=== PATIENT | female | born 1980 | race African-American/Black ===

== ENCOUNTER → 2017-02-18 | Day surgery (SDC) | payer OTHER ==
--- NOTE | 2017-02-17 22:17 | HHI.HP ---
HPI Chief Complaint menometrorrhagia, multiple fibroids, anemia due to blood loss, pelvic pain Date Seen: February 18, 2017 Travel History International Travel<30 Days: No Contact w/Intl Traveler<30Days: No Known Affected Area: No History of Present Illness HPI Patient is a 36 years old female with a long history of heavy menstrual flow for many days and abnormal bleeding. She has developed anemia due to her blood loss. The patient has requested surgical treatment in the form of an endometrial ablation. Para: 2 : 2 Miscarriage: 0 : 0 History Past Medical History Medical History: Denies Significant Hx Obstetric History Obstetric History Two pregnancies, two vaginal deliveries Past Surgical History Narrative Surgical 2005 -- Bilateral tubal ligation Family History Family History: Negative Social History Alcohol Use: No Tobacco Use: No Substance Abuse: No Allergies-Medications (Allergen,Severity, Reaction): Coded Allergies: No Known Allergies (Unverified , 02/17/17) Narrative Medication Ferrous Sulfate Review of Systems General / Constitutional: No: Fever, Weight Gain, Chills, Other Eyes: No: Diploplia, Blurred Vision, Visual changes, Pain, Photophobia HENT: No: Headaches, Vertigo, Lightheadedness Cardiovascular: No: Irregular Rhythm, Chest Pain or Discomfort, Palpitations, Tachycardia, Syncope, Varicosities, Edema, Cyanosis Respiratory: No: Cough, Short of Breath, Other Gastrointestinal: No: Nausea, Vomiting, Diarrhea Genitourinary: Pelvic Pain, Menorrhagia, Vaginal Bleeding, No: Decreased Urinary Output, Oliguria Musculoskeletal: No: Limited ROM, Weakness, Cramping, Edema, Pain Skin: No Rash, No Itching, No Dryness, No Lumps, No Change in Pigmentation, No Change in Nails, No Alopecia, No Lesions Neurologic: No: Weakness, Dizziness, Syncope, Focal Abnormalities, Coordination Problem, Headache, Slurred Speech, Seizures Psychiatric: No: Depression, Suicidal Ideations, Homicidal Ideation Endocrine: No: Heat Intolerance, Cold Intolerance, Polydipsia, Polyuria, Other Physical Exam Narrative GENERAL: Well-nourished, well-developed patient. SKIN: Warm and dry. HEAD: Normocephalic and atraumatic. EYES: No scleral icterus. No injection or drainage. ENT: No nasal drainage noted. Mucous membranes pink. Airway patent. NECK: Supple, trachea midline. No JVD. CARDIOVASCULAR: Regular rate and rhythm without murmurs, gallops, or rubs. RESPIRATORY: Breath sounds equal bilaterally. No accessory muscle use. BREASTS: Bilateral exam showed no masses , no retractions, no nipple discharge. ABDOMEN/GI: Abdomen soft, non-tender, bowel sounds present, no rebound, no guarding GENITOURINARY: External Genitalia: intact and normal in appearance Uterus: enlarged fibroids uterus EXTREMITIES: No cyanosis or edema. BACK: Nontender without obvious deformity. No CVA tenderness. NEUROLOGICAL: Awake and alert. Motor and sensory grossly within normal limits. Five out of 5 muscle strength in all muscle groups. Normal speech. Data Data Vital Signs Reviewed: Yes Assessment/Plan Problem List: (1) Excessive and frequent menstruation with irregular cycle (2) Iron deficiency anemia due to chronic blood loss (3) Intramural leiomyoma of uterus (4) Subserosal leiomyoma of uterus Assessment and Plan 1. admit for hysteroscopy, D&C, endometrial ablation 2. discussed the R/B/A of the procedure: bleeding, infection, damage to internal organs if uterine perforation occurs (bowel, bladder, nerves, ureters, vessels) as well damage to vaginal coyle 3, discussed the risk of needing further treatment and / or surgical treatment 4. informed consent was obtained after patient's questions were answered; she verbalized understanding Letitia Bean MD February 17, 2017 22:17
[~2017-02-18] MED LIST: KETOROLAC TROMETHAMINE 30 MG/ML (IVP) VIAL IV PUSH ONE; LACTATED RINGER'S 1000 ML INJ 1,000 ML ONE; MEPERIDINE HCL 25 MG/ML VIAL ONE; MIDAZOLAM HCL 2 MG/2 ML VIAL ONE; ONDANSETRON HCL 4 MG/2 ML VIAL IV PUSH ONE; PROPOFOL 200 MG/20 ML AMP IV ONE; ceFAZolin INJ 1,000 MG VIAL ONE; oxyCODONE/ACETAMINOPHEN 5 MG/325 MG TAB ONE
--- NOTE | 2017-02-18 20:09 | PD.OP ---
Operative Report Date of Surgery: February 18, 2017 Preoperative Diagnosis: (1) Excessive and frequent menstruation with irregular cycle (2) Iron deficiency anemia due to chronic blood loss (3) Intramural leiomyoma of uterus (4) Subserosal leiomyoma of uterus Postoperative Diagnosis: (1) Excessive and frequent menstruation with irregular cycle (2) Iron deficiency anemia due to chronic blood loss (3) Intramural leiomyoma of uterus (4) Subserosal leiomyoma of uterus Procedure: 1. hysteroscopy 2. Polypectomy 3. D&C 4. endometrial ablation with NovaSure Anesthesia: General Surgeon: Letitia Bean Drafter Topographical(s): Staff Operation and Findings: IVF: 600 ml LR + IV antibiotics given prior to surgery UO: none EBL: < 10 ml Findings: endometrial polyp vs myoma Specimens: endometrial curettings Complications: none Conditions: stable Disposition: PACU Description of procedure: I discussed the risks, benefits and alternatives of the procedure with the patient. Her questions were answered, informed consent was signed, the patient verbalized understanding. She was then taken to the operating room with her IV running, was placed in the supine position and was given general anesthesia without difficulties or complications.The patient was then placed in the dorsal lithotomy position and was prepped and draped in the usual sterile fashion. A bivalved speculum was introduced inside the patient's vagina. The anterior aspect of the cervix was grasped with a single tooth tenaculum for manipulation. The cervix was carefully dilated. The Myosure camera was then introduced inside the patient's uterus. The uterine cavity was noted to have large endometrial polyp (and suspected myoma). The Myosure instrument was used to remove the polyps and the endometrial lining. A gentle curettage was done with a sharp curette. The tissues were sent to pathology. Next, endometrial ablation following NovaSure protocol was done without difficulties (L=6, W= 4.6, P=156). All the instruments were removed from the patient's uterus. Good hemostasis was noted at the tenaculum site after two figure eight Chromic stitches were placed. All instruments were removed from the patient's vagina. The patient tolerated the procedure well. She was successfully awaken from general anesthesia and was transferred to PACU in stable condition Note: I discussed the surgical findings and procedures with the patient; her questions were answered; she verbalized understanding and agreement to the procedures done. Letitia Bean MD February 18, 2017 20:09
== END | disposition home or self-care (01) ==
LOC: ESDC 09:17
PROVIDERS: ATTEND Obstetrics & Gynecology
DX: N92.0 Excessive and frequent menstruation with regular cycle (principal); D50.0 Iron deficiency anemia secondary to blood loss (chronic); D25.1 Intramural leiomyoma of uterus; D25.2 Subserosal leiomyoma of uterus
CPT/HCPCS: 00952; 58563; 88305; J0690; J1885; J2175; J2250; J2405; J3010; J7120

== ENCOUNTER → 2017-06-16 | Day surgery (SDC) | payer OTHER ==
[~2017-06-16] VITALS: Ht 175.3 cm; Wt 120.3 kg
[~2017-06-16] MED LIST changes: +*MEPERIDINE 25 MG INJ VIAL PERIprocedural Use ONLY ONE; +*morphine SULFATE 8 MG/ML PERIprocedure ONLY ONE; +ACETAMINOPHEN 1000 MG/100 ML 100 ML IV ONE; +ACYC800T PO; +BUPIVACAINE HCL PF 0.25% 30 ML VIAL ONE; +BUPIVACAINE/EPINEPHRINE 0.5% 50 ML VIAL ONE; +BUPIVACAINE/EPINEPHRINE 0.5% PF 10 ML VIAL ONE; +CETI10CA3 PO; +CHLORHEXIDINE GLUCONATE 2 % 1 PACK (2 CLOTHS) TOPICAL PRN; +DEXAMETHASONE SOD PHOS 4 MG/ML VIAL IV ONE; +DO NOT ADM ANY ANTICOAGULANT DRUGS PRN; +ESTROGENS CONJUGATED VAG CREA 15 APPL/30 GM TUBE ONE; +FAMOTIDINE 20 MG/2 ML VIAL ONE; +FERR325T8 PO; +GLYCOPYRROLATE 0.2 MG/ML VIAL IV ONE; +INSULIN HUMAN REGULAR 1,000 UNITS/10 ML VIAL SQ PRN; -KETOROLAC TROMETHAMINE 30 MG/ML (IVP) VIAL IV PUSH ONE; -LACTATED RINGER'S 1000 ML INJ 1,000 ML ONE; +LACTATED RINGER'S 1000 ML IV PRN; +LIDOCAINE HCL 1% PF 5 ML AMPULE OTHER ONE; -MEPERIDINE HCL 25 MG/ML VIAL ONE; +METHYLENE BLUE 10 MG/ML VIAL IV ONE; +METOPROLOL TARTRATE 25 MG TAB PO PRN; +MIDAZOLAM HCL 2 MG/2 ML VIAL IV ONE; -MIDAZOLAM HCL 2 MG/2 ML VIAL ONE; +NEOSTIGMINE 3 MG/3 ML SYR IV ONE; +PHENYLEPH/NS 1000 MCG/10 ML SYR IV ONE; +POVIDONE IODINE 5% (ANTISEPSIS KIT) 4 APPLICATIONS EACH NARE PRN; +ROCURONIUM INJ 50 MG/5 ML SYRINGE IV PUSH ONE; +SODIUM CHLORID 0.9% 500 ML IV PRN; +SODIUM CHLORIDE 0.9% 20 ML VIAL ONE; +SODIUM CHLORIDE 0.9% IV ONE; +VASOPRESSIN 20 UNITS/ML VIAL (IVTITR) ONE; +VITA1000 PO; +[UNRECOGNIZED DRUG - OTHER] IV ONE; +ceFAZolin 2 GM PREMIX 50 ML IV SCH; -ceFAZolin INJ 1,000 MG VIAL ONE; -oxyCODONE/ACETAMINOPHEN 5 MG/325 MG TAB ONE; +oxyCODONE/ACETAMINOPHEN 5 MG/325 MG TAB PO PRN
--- NOTE | 2017-06-16 11:09 | PD.OP ---
Operative Report Date of Surgery: Jun 16, 2017 Preoperative Diagnosis: (1) Uterine prolapse (2) Excessive and frequent menstruation with irregular cycle (3) Iron deficiency anemia due to chronic blood loss (4) Intramural leiomyoma of uterus Postoperative Diagnosis: (1) Uterine prolapse (2) Excessive and frequent menstruation with irregular cycle (3) Iron deficiency anemia due to chronic blood loss (4) Intramural leiomyoma of uterus Procedure: 1. laparoscopic assisted vaginal hysterectomy 2. bilateral salpingo-oophorectomy 3. culdoplasty Anesthesia: BOWEN Surgeon: Letitia Bean Circulation Crew Leader(s): OR staff Operation and Findings: IVF: 2100 ml LR + IV antibiotics given prior to surgery + Methylene blue given during surgery EBL: 500 ml UO: 400 ml Surgical findings: 1. enlarged uterus with multiple large fibroids 2. fallopian tubes with paratubal cysts 3. normal ovaries Specimens: cervix, uterus, tubes Complications: none Condition: stable Disposition: PACU Descriptions of the procedure: I discussed the risks, benefits and alternatives of the procedure with the patient. Informed consent was obtained after questions were answered. She was then taken to the operating room with her IV running. She was placed in the supine position and was given general anesthesia without difficulties or complications. She was then placed in the dorsal lithotomy position and was prepped and draped in the usual sterile fashion. Attention was first turned to the patient's genital area. A bivalved speculum was introduced inside the patient's vagina. The anterior aspect of the cervix was grasped with a single tooth tenaculum for manipulation. The cervix was carefully dilated and a uterine manipulator was carefully introduced inside her uterus. The rest of the instruments were removed from the patient's vagina and a sterile blue towel was used to cover the perineum. The surgeon changed gloves and attention was then turned to the patient's abdomen. A vertical umbilical incision was made with the scalpel. A 5 mm trocar was introduced inside the patient's abdomen under direct visualization. A pneumo -peritoneum was created with CO2 gas. Next, three 5 mm trocars were introduced inside the patient's abdomen under direct visualization in the lower right, mid , and left abdomen. A survey of the patient's abdomen revealed normal anatomy. A survey of the patient's pelvis revealed the findings noted above. The round ligaments and utero-ovarian ligaments were carefully and serially grasped, electrocauterized and cut with the Harmonic scalpel. Excellent hemostasis was noted. The tissues along the uterus on both sides were serially grasped, electrocauterized and transected with the Harmonic scalpel. The ureters were noted to be away from the surgical site. The uterine vessels were skeletonized, electrocauterized and transected with the Harmonic scalpel. Good hemostasis was noted. Next, the bladder flap was created and the bladder was dissected off the lower uterine segment. Excellent hemostasis was noted. At this point, attention was again turned to the patient's perineal area. The uterine manipulator was removed. The Bovie was used to circumferentially cut the vaginal tissues at the cervico-vaginal junction after Pitressin had been injected. The anterior cul de sac was entered without difficulties. The posterior cul de sac was also entered without difficulties. A retractor was introduced inside the posterior cul de sac. A retractor was placed inside the anterior cul de sac. Curved Nella clamps were used to clamp the cardinal ligaments. These were transected with Go scissors and stitched with 0-Vicryl. Good hemostasis was noted. The rest of the tissues along the lower uterine segment were serially clamped, transected with Go scissors and stitched with 0 -Vicryl. Good hemostasis was noted at each pedicle. The cervix, uterus and tubes were removed and sent to pathology. A sponge stick was used to check each pedicle for hemostasis. All the instruments were removed from the patient's pelvis. A T[place]ina culdoplasty was carefully done. The peritoneum was then reapproximated with a purse string stitch of 0-Vicryl. The pedicles were reapproximated and secured in order to get the vaginal cuff higher in the pelvis. The vaginal tissues were reapproximated with running, locked stitches of 0-Vicryl in a vertical fashion. Premarin cream was placed in the patient's vagina. The surgeon changed gloves and attention was turned again to the patient's abdomen. The pneumoperitoneum was recreated. The surgical sites were noted to be hemostatic. Copious irrigation was done. Methylene blue was given at the beginning of the surgical procedure. The ureters were identified and found to be away from the surgical sites. There was no evidence of injury or blockage of the ureters or bladder. Interseed was placed over the surgical site. All of the instruments were removed from the patient's abdomen. The ports were also removed under direct visualization. Excellent hemostasis was noted. The CO2 gas was carefully expressed out of the patient's abdomen. The skin incisions were injected with 0.5 % Marcaine and were reapproximated with subcutaneous stitches of 4-0 Vicryl. Mastisol and steri strips were placed over the incisions. The patient tolerated the procedure well. She was successfully extubated and transferred to PACU in stable condition. Note: I discussed surgical procedures and surgical findings with patient's . His questions were answered. He verbalized understanding. Letitia Bean MD Jun 16, 2017 10:55
[2017-06-16 12:35] VITALS: TEMP 97.6
[2017-06-16 14:45] VITALS: BP 112/67; PULSE 93; RESP 18; O2SAT 97
== END | disposition home or self-care (01) ==
LOC: HSDC 05:41
PROVIDERS: ATTEND Obstetrics & Gynecology
DX: D25.1 Intramural leiomyoma of uterus (principal); N81.4 Uterovaginal prolapse, unspecified; N92.0 Excessive and frequent menstruation with regular cycle; D50.0 Iron deficiency anemia secondary to blood loss (chronic)
CPT/HCPCS: 00840; 58552; 86850; 86900; 86901; 88307; C1765; J0131; J0690; J1100; J2175; J2250; J2270; J2370; J2405; J2710; J3010; J7120